=== PATIENT | female | born 1980 | race Caucasian/White ===

== ENCOUNTER 2016-08-28 21:44 | Observation (INO) | payer MEDICAID ==
[~2016-08-28] VITALS: Ht 172.7 cm; Wt 112.4 kg
[2016-08-28] MEDS ORDERED: LORazepam 2 MG/ML, 1ML IM ONE (23:30)
[2016-08-28] MEDS ORDERED: ZIPRASIDONE 20 MG INJ IM ONE ×2 (23:30→23:32)
[2016-08-28] MEDS ORDERED: LORazepam 2 MG/ML, 1ML ONE (23:32)
[2016-08-29 00:52] LABS: ASPARTATE AMINO TRANSFERASE 16 U/L (15-37); BLOOD UREA NITROGEN 8 mg/dL (7-18)
[2016-08-29 00:58] LABS: ACETAMINOPHEN < 2 mcg/mL (10-30)
[2016-08-29 03:29] LABS: DAU SCREEN DISCLAIMER
[2016-08-29] MEDS ORDERED: ACETAMINOPHEN 325 MG TABLET ONE (15:49)
[2016-08-29] MEDS ORDERED: ACETAMINOPHEN 325 MG TABLET PO ONE (16:00)
[2016-08-29] MEDS ORDERED: DIPHENHYDRAMINE 50 MG CAPSULE PO PRN (21:30)
[2016-08-29] MEDS ORDERED: NICOTINE 14MG/24 HR PATCH.TD24 TD SCH (21:30)
[2016-08-29] MEDS ORDERED: ZIPRASIDONE 20MG CAPSULE PO PRN (21:30)
[2016-08-29] MEDS ORDERED: POLYETHYLENE GLYCOL 17 GM PACKET PO PRN (21:30)
[2016-08-29] MEDS ORDERED: BISACODYL 10 MG SUPP PR PRN (21:30)
[2016-08-29] MEDS ORDERED: ONDANSETRON ODT 4 MG PO PRN (21:30)
[2016-08-29] MEDS: ACETAMINOPHEN 325 MG TABLET PO PRN (22:42)
[2016-08-29] MEDS: LISINOPRIL 10 MG TABLET PO SCH (22:45)
[2016-08-29 23:21] VITALS: BP 169/101
[2016-08-30] MEDS: METHOCARBAMOL 750 MG TABLET PO PRN ×2 (06:58→12:50)
[2016-08-30 07:45] VITALS: BP 169/104
[2016-08-30] MEDS ORDERED: SENNA/DOCUSATE TABLET PO SCH (09:00)
[2016-08-30] MEDS: LISINOPRIL 10 MG TABLET PO SCH (09:15)
[2016-08-30] MEDS: ACETAMINOPHEN 325 MG TABLET PO PRN (12:50)
== END 2016-08-30 14:08 ==
LOC: ED 23:59 → EDIP 08-29 21:13 → 3E 08-29 22:24
PROVIDERS: ADMIT Family Medicine; ATTEND Family Medicine
DX: R45.851 Suicidal ideations (principal); E44.1 Mild protein-calorie malnutrition; E66.01 Morbid (severe) obesity due to excess calories; F15.10 Other stimulant abuse, uncomplicated; I10 Essential (primary) hypertension; F17.210 Nicotine dependence, cigarettes, uncomplicated
CPT/HCPCS: 36415; 80053; 80307; 80329; 84703; 85025; 96372; 99285; G0378; J2060; G0480

== ENCOUNTER 2017-04-19 23:28 | Emergency (ER) | payer MEDICAID, OTHER ==
[~2017-04-19] VITALS: Ht 172.7 cm; Wt 110.0 kg
[2017-04-20 00:27] LABS: BASOPHILS # (AUTO) 0.09 x10^3/uL (0-0.1); BASOPHILS % (AUTO) 1 % (0-1); EOSINOPHILS # (AUTO) 0.23 x10^3/uL (0-0.4); EOSINOPHILS % (AUTO) 3 % (1-7); LYMPHOCYTES # (AUTO) 1.68 x10^3/uL (1-3.4); LYMPHOCYTES % (AUTO) 20 % (22-44); MD NO; MEAN CORPUSCULAR HGB CONC 33.4 g/dL (32.4-35.8); MEAN CORPUSCULAR VOLUME 92.8 fL (80-100); MEAN PLATELET VOLUME 7.9 fL (7.4-10.4); MONOCYTES # (AUTO) 0.61 x10^3/uL (0.2-0.8); MONOCYTES % (AUTO) 7 % (2-9); NEUTROPHILS # (AUTO) 5.82 x10^3/uL (1.8-6.8); NEUTROPHILS % (AUTO) 69 % (42-75); PLATELET COUNT 280 x10^3/uL (130-400); RED BLOOD COUNT 4.55 x10^6/uL (3.82-5.3); RED CELL DISTRIBUTION WIDTH 16.4 % (9.6-15.2)
[2017-04-20 00:35] LABS: ALBUMIN 3.6 g/dL (3.4-5.0); ANION GAP 6 mmol/L (5-15); CALCIUM 8.5 mg/dL (8.5-10.1); CHLORIDE 109 mmol/L (98-107); CREATININE 0.52 mg/dL (0.55-1.02)
[2017-04-20 00:39] LABS: TROPONIN I < 0.015 ng/mL (0.000-0.045)
[2017-04-20 00:49] VITALS: BP 162/93
== END 2017-04-20 00:59 | disposition home or self-care (01) ==
LOC: ED 23:59
DX: I10 Essential (primary) hypertension (principal); G89.29 Other chronic pain; F17.200 Nicotine dependence, unspecified, uncomplicated; F41.9 Anxiety disorder, unspecified
CPT/HCPCS: 36415; 80048; 82040; 84484; 85025; 93005; 99285

== ENCOUNTER 2017-08-31 09:27 | Emergency (ER) | payer MEDICAID ==
[~2017-08-31] VITALS: Ht 172.7 cm; Wt 124.7 kg
[2017-08-31 09:35] VITALS: BP 158/92
[2017-08-31] MEDS ORDERED: LORazepam 1MG TABLET ONE (10:52)
[2017-08-31] MEDS ORDERED: LORazepam 1MG TABLET PO ONE (11:00)
== END 2017-08-31 11:11 | disposition home or self-care (01) ==
LOC: ED 10:45
DX: F33.2 Major depressive disorder, recurrent severe without psychotic features (principal); F41.0 Panic disorder [episodic paroxysmal anxiety]; I10 Essential (primary) hypertension
CPT/HCPCS: 99284

== ENCOUNTER 2018-08-28 10:04 | Inpatient (IN) | payer MEDICAID ==
[~2018-08-28] VITALS: Ht 172.7 cm; Wt 145.9 kg
--- NOTE | 2018-08-28 11:07 | NUR ---
PT TO ROOM AT THIS TIME
[2018-08-28] MEDS ORDERED: QUET300T7 PO (11:34)
[2018-08-28] MEDS ORDERED: ARIP2TAB2 PO (11:34)
[2018-08-28] MEDS ORDERED: BUPR-173 PO (11:34)
[2018-08-28] MEDS ORDERED: LISI-170 PO (11:34)
--- NOTE | 2018-08-28 11:44 | NUR ---
RECEIVED BEDSIDE REPORT FROM VANDANA YARBROUGH.
--- NOTE | 2018-08-28 11:45 | NUR ---
REPORT TO VANDANA DEAL. PT RESTING IN POSITION OF COMFORT IN [facility]. CONTINUOUS SPO2 MONITORING IN PLACE. AWAITING EVAL BY ED MD.
[2018-08-28] MEDS ORDERED: FLUCONAZOLE 200 MG/100 ML 100 ML IV STA (12:27)
[2018-08-28] MEDS ORDERED: HYDROmorphone 1 MG/ML, 1ML INJ IVPush PRN (12:30)
[2018-08-28] MEDS ORDERED: ONDANSETRON 2MG/ML, 2ML IVPush ONE (12:30)
[2018-08-28] MEDS ORDERED: VANCOMYCIN PER PHARMACY IV ONE (12:30)
[2018-08-28] MEDS ORDERED: LORazepam 1MG TABLET PO ONE (12:30)
[2018-08-28] MEDS ORDERED: SODIUM CHLORIDE FLUSH 10ML SYR IVF ONE (12:30)
[2018-08-28] MEDS ORDERED: LIDOCAINE 2% VISCOUS, 100ML MM ONE (12:38)
--- NOTE | 2018-08-28 12:42 | NUR ---
PIV ESTABLISHED. PT TOLERATED WITH NO COMPLICATIONS. NO ACUTE DISTRESS NOTED. MOTHER BEDSIDE. PT VERBALIZES UNDERSTANDING REGARDING POC.
[2018-08-28] MEDS ORDERED: MIRTAZAPINE (12:44)
[2018-08-28] MEDS ORDERED: FLUCONAZOLE 200 MG TABLET PO ONE (12:54)
[2018-08-28] MEDS ORDERED: FLUCONAZOLE 100 MG TABLET ONE (13:04)
[2018-08-28] MEDS ORDERED: LORazepam 1MG TABLET ONE (13:04)
[2018-08-28] MEDS ORDERED: ONDANSETRON 2MG/ML, 2ML ONE (13:04)
[2018-08-28] MEDS ORDERED: NYSTATIN OINT 15GM TP ONE (13:05)
--- NOTE | 2018-08-28 13:15 | NUR ---
PT RESTING ON GURNEY. NO ACUTE DISTRESS NOTED. MOTHER BEDSIDE. PT DOESN;'T WANT VISITORS, ONLY MOTHER (JOSE BENAVIDES).
--- NOTE | 2018-08-28 13:21 | NUR ---
security aware of PT VEHICLE IN ER PARKING LOT. PER SECURITY, "IT WON'T BE TOWED." PT HAS [address] [employer].
[2018-08-28 13:27] LABS: BASOPHILS # (AUTO) 0.05 x10^3/uL (0-0.1); BASOPHILS % (AUTO) 1 % (0-1); EOSINOPHILS # (AUTO) 0.19 x10^3/uL (0-0.4); EOSINOPHILS % (AUTO) 2 % (1-7); LYMPHOCYTES # (AUTO) 1.98 x10^3/uL (1-3.4); LYMPHOCYTES % (AUTO) 19 % (22-44); MD NO; MEAN CORPUSCULAR HEMOGLOBIN 32.9 pg (27.0-34.8); MEAN CORPUSCULAR HGB CONC 34.4 g/dL (32.4-35.8); MEAN CORPUSCULAR VOLUME 95.8 fL (80-100); MEAN PLATELET VOLUME 8.3 fL (7.4-10.4); MONOCYTES # (AUTO) 0.81 x10^3/uL (0.2-0.8); MONOCYTES % (AUTO) 8 % (2-9); NEUTROPHILS % (AUTO) 71 % (42-75); PLATELET COUNT 346 x10^3/uL (130-400); RED BLOOD COUNT 4.14 x10^6/uL (3.82-5.3)
[2018-08-28 13:36] LABS: ALBUMIN 4.2 g/dL (3.4-5.0); ANION GAP 10 mmol/L (5-15); CALCIUM 9.4 mg/dL (8.5-10.1); CHLORIDE 102 mmol/L (98-107)
[2018-08-28 13:39] LABS: ALANINE AMINOTRANSFERASE 68 U/L (12-78); ALKALINE PHOSPHATASE 59 U/L (45-117); BILIRUBIN,TOTAL 0.6 mg/dL (0.2-1.0); CREATININE 0.99 mg/dL (0.55-1.02)
--- NOTE | 2018-08-28 14:13 | NUR ---
RECEIVED BEDSIDE REPORT FROM VANDANA YARBROUGH.
--- NOTE | 2018-08-28 14:29 | NUR ---
REPORT TO VANDANA JAIN. ALL QUESTIONS ANSWERED
[2018-08-28] MEDS ORDERED: HYDROmorphone 1 MG/ML, 1ML VIAL ONE (14:31)
[2018-08-28] MEDS: CEFAZOLIN 2,000 MG in SODIUM CHLORIDE 0.9% 50 ML IV SCH ×2 (14:44→21:09)
--- NOTE | 2018-08-28 15:00 | NUR ---
PT TRANSFERRED TO FLOOR. PT LEFT WITH ALL PERSONAL BELONGINGS, INCLUDING PHONE AND PHONE LEGAL NURSE CONSULTANT
[2018-08-28] MEDS ORDERED: ONDANSETRON ODT 4 MG PO PRN (15:30)
[2018-08-28] MEDS ORDERED: ONDANSETRON 2MG/ML, 2ML IVPush PRN (15:30)
[2018-08-28] MEDS ORDERED: KETOROLAC 30 MG/1 ML IV PRN (15:30)
[2018-08-28] MEDS: ENOXAPARIN 40 MG/0.4 ML SQ SCH (15:30)
[2018-08-28] MEDS ORDERED: ACETAMINOPHEN 325 MG TABLET PO PRN (15:30)
[2018-08-28 18:29] VITALS: BP 122/77
[2018-08-28] MEDS: POTASSIUM CHLORIDE 20 MEQ TAB.ER.PRT PO SCH (18:48)
[2018-08-28] MEDS: NYSTATIN TOPICAL POWDER 15GM TP SCH (19:00)
[2018-08-28 19:05] VITALS: BP 91/63
[2018-08-28] MEDS: HYDROcodone/APAP 5/325 TABLET PO PRN (19:58)
[2018-08-28 21:11] LABS: MICROSCOPIC INDICATED
[2018-08-28 21:28] LABS: CULTURE INDICATED? YES
[2018-08-29] MEDS: NYSTATIN TOPICAL POWDER 15GM TP SCH ×4 (01:00→21:54)
[2018-08-29 01:26] VITALS: BP 112/72
[2018-08-29] MEDS: HYDROcodone/APAP 5/325 TABLET PO PRN ×5 (05:17→21:54)
[2018-08-29] MEDS: CEFAZOLIN 2,000 MG in SODIUM CHLORIDE 0.9% 50 ML IV SCH ×2 (05:17→13:38)
[2018-08-29 05:18] LABS: BASOPHILS # (AUTO) 0.11 x10^3/uL (0-0.1); BASOPHILS % (AUTO) 2 % (0-1); EOSINOPHILS # (AUTO) 0.26 x10^3/uL (0-0.4); EOSINOPHILS % (AUTO) 4 % (1-7); LYMPHOCYTES # (AUTO) 2.11 x10^3/uL (1-3.4); LYMPHOCYTES % (AUTO) 33 % (22-44); MD NO; MEAN CORPUSCULAR HEMOGLOBIN 33.1 pg (27.0-34.8); MEAN CORPUSCULAR HGB CONC 34.3 g/dL (32.4-35.8); MEAN CORPUSCULAR VOLUME 96.7 fL (80-100); MEAN PLATELET VOLUME 7.9 fL (7.4-10.4); MONOCYTES # (AUTO) 0.77 x10^3/uL (0.2-0.8); MONOCYTES % (AUTO) 12 % (2-9); NEUTROPHILS # (AUTO) 3.11 x10^3/uL (1.8-6.8); NEUTROPHILS % (AUTO) 49 % (42-75); PLATELET COUNT 284 x10^3/uL (130-400); RED BLOOD COUNT 3.79 x10^6/uL (3.82-5.3)
[2018-08-29 05:24] LABS: CHLORIDE 102 mmol/L (98-107)
[2018-08-29 05:41] LABS: ALANINE AMINOTRANSFERASE 52 U/L (12-78); ALBUMIN 3.4 g/dL (3.4-5.0); ALKALINE PHOSPHATASE 54 U/L (45-117); ANION GAP 7 mmol/L (5-15); BILIRUBIN,TOTAL 0.3 mg/dL (0.2-1.0); CALCIUM 8.7 mg/dL (8.5-10.1); CREATININE 1.28 mg/dL (0.55-1.02); TOTAL PROTEIN 6.8 g/dL (6.4-8.2)
[2018-08-29 07:00] VITALS: BP 97/66
[2018-08-29] MEDS: POTASSIUM CHLORIDE 20 MEQ TAB.ER.PRT PO SCH (09:31)
[2018-08-29 12:23] VITALS: BP 97/64
[2018-08-29] MEDS ORDERED: POTASSIUM CHLORIDE 20 MEQ TAB.ER.PRT PO ONE (13:00)
[2018-08-29] MEDS: LIDODERM 5% PATCH TD SCH ×2 (13:41→13:50)
[2018-08-29] MEDS: ENOXAPARIN 40 MG/0.4 ML SQ SCH (15:30)
[2018-08-29 18:35] VITALS: BP 102/66
[2018-08-29] MEDS: QUETIAPINE FUMARATE 300 MG PO SCH (21:00)
[2018-08-29] MEDS: MIRTAZAPINE 15 MG TABLET PO SCH (21:54)
[2018-08-30 00:48] VITALS: BP 100/64
[2018-08-30] MEDS: HYDROcodone/APAP 5/325 TABLET PO PRN ×4 (04:29→21:19)
[2018-08-30] MEDS: CEFAZOLIN PMX 2GM/50ML 50 ML IVPB SCH ×3 (04:29→21:12)
[2018-08-30 07:16] VITALS: BP 98/65
[2018-08-30] MEDS: ARIPIPRAZOLE 5 MG TABLET PO SCH (08:52)
[2018-08-30] MEDS: POTASSIUM CHLORIDE 20 MEQ TAB.ER.PRT PO SCH (08:53)
[2018-08-30] MEDS: BUPROPION SR 150 MG TABLET PO SCH (08:53)
[2018-08-30] MEDS: NYSTATIN TOPICAL POWDER 15GM TP SCH ×3 (08:54→21:17)
[2018-08-30 13:05] VITALS: BP 108/73
[2018-08-30] MEDS ORDERED: ENOXAPARIN 30 MG/0.3 ML SQ SCH (13:30)
[2018-08-30] MEDS ORDERED: SODIUM CHLORIDE 0.9% 1,000ML IVBOLUS ONE (15:00)
[2018-08-30] MEDS: LIDOCAINE 4% CREAM 5GM TUBE TP SCH ×2 (16:51→21:00)
[2018-08-30 19:50] VITALS: BP 100/69
[2018-08-30] MEDS: QUETIAPINE FUMARATE 300 MG PO SCH (21:00)
[2018-08-30] MEDS: MIRTAZAPINE 15 MG TABLET PO SCH (21:17)
[2018-08-31 03:02] VITALS: BP 137/74
[2018-08-31] MEDS: HYDROcodone/APAP 5/325 TABLET PO PRN ×2 (04:54→11:59)
[2018-08-31] MEDS: CEFAZOLIN PMX 2GM/50ML 50 ML IVPB SCH ×2 (05:44→13:30)
[2018-08-31 05:48] LABS: ANION GAP 5 mmol/L (5-15); CALCIUM 8.7 mg/dL (8.5-10.1); CHLORIDE 107 mmol/L (98-107); CREATININE 0.86 mg/dL (0.55-1.02)
[2018-08-31] MEDS: ARIPIPRAZOLE 5 MG TABLET PO SCH (09:38)
[2018-08-31] MEDS: BUPROPION SR 150 MG TABLET PO SCH (09:40)
[2018-08-31] MEDS: POTASSIUM CHLORIDE 20 MEQ TAB.ER.PRT PO SCH (09:40)
[2018-08-31] MEDS: LIDOCAINE 4% CREAM 5GM TUBE TP SCH (09:40)
[2018-08-31] MEDS ORDERED: CEPH-368 PO (09:48)
[2018-08-31] MEDS ORDERED: LIDO5CRE19 TP (09:48)
[2018-08-31] MEDS ORDERED: NYST15CR33 TP (09:48)
[2018-08-31] MEDS: NYSTATIN TOPICAL POWDER 15GM TP SCH (09:50)
[2018-08-31 09:54] VITALS: BP 125/78
[2018-08-31 12:04] VITALS: BP 124/86
== END 2018-08-31 15:06 | disposition home or self-care (01) | DRG 603 ==
LOC: ED 12:32 → EDIP 13:54 → 3NE 15:11
PROVIDERS: ADMIT Internal Medicine; ATTEND Internal Medicine
DX: L03.115 Cellulitis of right lower limb (principal); L97.119 Non-pressure chronic ulcer of right thigh with unspecified severity; Z68.42 Body mass index [BMI] 45.0-49.9, adult; L97.129 Non-pressure chronic ulcer of left thigh with unspecified severity; E66.01 Morbid (severe) obesity due to excess calories; B37.2 Candidiasis of skin and nail; D72.810 Lymphocytopenia; E87.6 Hypokalemia; L03.116 Cellulitis of left lower limb; F17.210 Nicotine dependence, cigarettes, uncomplicated; F31.9 Bipolar disorder, unspecified; F41.0 Panic disorder [episodic paroxysmal anxiety]; F41.1 Generalized anxiety disorder; I10 Essential (primary) hypertension; L30.4 Erythema intertrigo; L74.0 Miliaria rubra
CPT/HCPCS: 36415; 80048; 80053; 81001; 83605; 83735; 84443; 84703; 85025; 86592; 87040; 87077; 87086; 87186; 87491; 87529; 87591; 87806; 96374; 96375; G0378; J0690; J1170; J2405; G0475; J7030

== ENCOUNTER 2019-09-27 16:10 | Emergency (ER) | payer MEDICAID ==
[~2019-09-27] VITALS: Ht 172.7 cm; Wt 124.1 kg
[2019-09-27 15:07] VITALS: BP 90/61
[~2019-09-27 16:10] MED LIST: ARIP2TAB2 PO; BUPR-173 PO; CEPH-368 PO; KETOROLAC 30 MG/1 ML IM ONE; KETOROLAC 60 MG/2 ML ONE; LIDO5CRE26 TP; LISI-170 PO; METHOCARBAMOL 750 MG TABLET ONE; METHOCARBAMOL 750 MG TABLET PO ONE; MIRTAZAPINE; NYST15CR TP; ONDANSETRON ODT 4 MG ONE; ONDANSETRON ODT 4 MG PO ONE; QUET300T7 PO
--- NOTE | 2019-09-27 16:16 | NUR ---
PT MEDICATED PER MAR. DENIES ANY FURTHER NEEDS OR CONCERNS AT THIS TIME. CALL LIGHT IN REACH.
== END 2019-09-27 16:49 | disposition home or self-care (01) ==
LOC: ED 16:10
DX: M54.41 Lumbago with sciatica, right side (principal); I10 Essential (primary) hypertension; E66.9 Obesity, unspecified
CPT/HCPCS: 96372; 99283; J1885; Q0162

== ENCOUNTER 2019-11-20 16:02 | Inpatient (IN) | payer MEDICAID ==
[~2019-11-20] VITALS: Ht 172.7 cm; Wt 124.6 kg
[~2019-11-20 16:02] MED LIST changes: -KETOROLAC 30 MG/1 ML IM ONE; -KETOROLAC 60 MG/2 ML ONE; -METHOCARBAMOL 750 MG TABLET ONE; -METHOCARBAMOL 750 MG TABLET PO ONE; -ONDANSETRON ODT 4 MG ONE; -ONDANSETRON ODT 4 MG PO ONE
--- NOTE | 2019-11-20 16:31 | NUR ---
PT BIB [facility] FOR SYNCOPAL EPISDOE AFTER STANDING. PT HAS NOT BEEN EATING PER MOTHER AT SCENE. +NAUSEA. PT HAD PROCEDURE 2 WEEKS AGO ON RIGHT HIP FOR PAIN THAT INVOLVED INJECTION AT HIP. PT REPORTS POSITIVE GRACE SYMPTOMS INCLUDING NASAL CONGESTION, FEVER, BODY ACHES, AND NAUSEA. PT REPORTS WHEN SHE PASSED OUT SHE STARTED TO HAVE LOW BACK PAIN AFTER INCIDENT. PT ON MONITOR. CHART UP FOR .
--- NOTE | 2019-11-20 16:49 | NUR ---
REST OF LITER OF NS INITIATED BY [facility] INFUSED AND SECOND LITER STARTED HERE PER DR. PAIZ. PT BP 90/43 WITH MAP LESS THAN 65.
[2019-11-20] MEDS ORDERED: SODIUM CHLORIDE 0.9% 1,000ML IVBOLUS ONE (17:00)
[2019-11-20 17:18] LABS: BASOPHILS # (AUTO) 0.04 x10^3/uL (0-0.1); BASOPHILS % (AUTO) 0 % (0-1); EOSINOPHILS # (AUTO) 0.13 x10^3/uL (0-0.4); EOSINOPHILS % (AUTO) 1 % (1-7); LYMPHOCYTES # (AUTO) 2.39 x10^3/uL (1-3.4); LYMPHOCYTES % (AUTO) 27 % (22-44); MD NO; MEAN CORPUSCULAR HEMOGLOBIN 30.3 pg (27.0-34.8); MEAN CORPUSCULAR HGB CONC 33.1 g/dL (32.4-35.8); MEAN CORPUSCULAR VOLUME 91.4 fL (80-100); MEAN PLATELET VOLUME 7.7 fL (7.4-10.4); MONOCYTES # (AUTO) 0.73 x10^3/uL (0.2-0.8); MONOCYTES % (AUTO) 8 % (2-9); NEUTROPHILS # (AUTO) 5.69 x10^3/uL (1.8-6.8); NEUTROPHILS % (AUTO) 63 % (42-75); PLATELET COUNT 219 x10^3/uL (130-400); RED BLOOD COUNT 3.21 x10^6/uL (3.82-5.3); RED CELL DISTRIBUTION WIDTH 12.4 % (9.6-15.2)
[2019-11-20 17:27] LABS: ALANINE AMINOTRANSFERASE 14 U/L (12-78); ALBUMIN 3.5 g/dL (3.4-5.0); ANION GAP 10 mmol/L (5-15); CALCIUM 8.4 mg/dL (8.5-10.1); CHLORIDE 108 mmol/L (98-107); CREATININE 4.19 mg/dL (0.55-1.02)
[2019-11-20 17:31] LABS: ALKALINE PHOSPHATASE 38 U/L (45-117); BILIRUBIN,TOTAL 0.4 mg/dL (0.2-1.0); TOTAL PROTEIN 6.2 g/dL (6.4-8.2)
--- NOTE | 2019-11-20 17:50 | NUR ---
DR PAIZ AT BEDSIDE. AWARE OF PT BP. CENTRAL LINE TO BE PLACED. PT WOULD LIKE HER MOM JOSE [phone] CALLED AND UPDATED ON PT CONDITION. PT AWARE OF MINI CATH FOR URINE. Addendum: 11/20/19 at 1753 by LYN 3rd liter ns infusing per v/o from dr paiz
--- NOTE | 2019-11-20 18:05 | NUR ---
PT MINI CATH'D FOR URINE SPECIMAN AFTER EXPLAINING PROCEDURE TO PT. PT BELLA WELL. PT MOVED TO TR03, REPORT TO SORAYA ROSS.
--- NOTE | 2019-11-20 18:13 | NUR ---
Pt to T3 at this time for central line insertion. Dr. Byers at bedside to insert central line. Pt anxious, verbal reassurance and education provided. Pt agreeable to POC.
[2019-11-20 18:16] LABS: MICROSCOPIC INDICATED
--- NOTE | 2019-11-20 18:17 | NUR ---
PLACED CALL TO PTS MOTHER JOSE [phone]. SHE EXPRESSED CONCERNS THE PT "HASNT BEEN HERSELF FOR A COUPLE OF WEEKS. NORMALLY VERY SHARP. SHE SEEMS TO FADE OUT. PROBLEMS WITH COMPREHENSION AND RETENTION. TELL HER SOMETHING AND SHE FORGETS. HAS A HX OF BIPOLAR AND HIGH ANXIETY. I FEEL THAT THERE IS SOMETHING PHYSICALLY WRONG WITH HER. SHE HASNT BEEN EATING OR DRINKING AND IT HAS BEEN SO HOT" "IF ANYONE HAS ANY QUESTIONS, PLEASE CALL ME. SHE LIVES WITH ME" JOSE UPDATED ON POC, IE: CENTAL LINE TO BE PLACED FLUIDS AND MEDS TO SUPPORT LOW BP. PT CURRENTLY IN RENAL FAILURE. PT WILL BE STAYING IN THE HOSPITAL. UNDERSTANDING VERBALIZED.
[2019-11-20 18:19] LABS: HCT (SEDRATE) 29.4 % (34.6-47.8)
[2019-11-20] MEDS ORDERED: FLUO40CA9 PO (18:29)
[2019-11-20] MEDS ORDERED: ALPR1TAB2 PO (18:29)
--- NOTE | 2019-11-20 18:30 | NUR ---
Pt tolerated central line insertion well, VSS throughout. Awaiting chest xray for placement confirmation.
--- NOTE | 2019-11-20 18:35 | NUR ---
Chest xray completed by [employer]. Central line ok for use per Dr. Byers.
[2019-11-20] MEDS ORDERED: MORPHINE SULFATE 4 MG/ML, 1ML ONE (18:37)
[2019-11-20] MEDS: MORPHINE SULFATE 4 MG/ML, 1ML IVPush PRN (18:38)
--- NOTE | 2019-11-20 18:42 | NUR ---
Pt medicated for 10/10 low back and R hip pain per JUN. US tech at bedside to perform ordered studies.
--- NOTE | 2019-11-20 18:55 | NUR ---
assumed care of pt. report from Jose Luis ROSS. pt here for syncopal episode and chronic back pain. pt is A&O x4. calm and cooperative resting in position of comfort. pt has recently been medicated for pain. no family at bedside. awaiting admit MD for eval
[2019-11-20] MEDS ORDERED: NOREPINEPHRINE 8 MG in SODIUM CHLORIDE 0.9% 242 ML IV PRN ×2 (19:00→21:30)
--- NOTE | 2019-11-20 19:10 | NUR ---
bedside US has been completed. pt to RAD for x-ray
--- NOTE | 2019-11-20 19:40 | NUR ---
pt has returned from RAD. pt reports that she has had some mild relief afte pain meds. pt reports that her pain is currently 8/10 from 01/29. pt states that her chronic back pain is consitantly at 10/10. pt is sitting up texting on he cell phone. calm and cooperative. pink warm and dry. no apparent resp distress. no seizure type activity noted. pt updated on POC
--- NOTE | 2019-11-20 20:08 | NUR ---
levophed has been held as pt B/P is consistantly ove 60 for the last hour
--- NOTE | 2019-11-20 21:00 | NUR ---
pt dozing intermittently. resting in position of comfort
--- NOTE | 2019-11-20 21:45 | NUR ---
upon entering room, pt dozing intermittently. no apparent resp. distress. no new c/o pt moved from [facility] to hospital bed with waffle mattress overlay for comfort. pt reports increased comfort after positioned
[2019-11-20] MEDS ORDERED: HYDROmorphone 2 MG/ML, 1ML IVPush PRN (22:00)
[2019-11-20] MEDS ORDERED: TRAZODONE 50MG TABLET PO PRN (22:00)
[2019-11-20] MEDS ORDERED: ACETAMINOPHEN 325 MG TABLET PO PRN (22:00)
[2019-11-20] MEDS ORDERED: LIDODERM 5% PATCH TD PRN (22:00)
[2019-11-20 22:59] LABS: TROPONIN I < 0.015 ng/mL (0.000-0.045)
[2019-11-20] MEDS ORDERED: ALPRazolam 1MG TAB PO PRN (23:00)
--- NOTE | 2019-11-21 | NUR ---
pt dozing. easily arousable. positioning for comfort levophed ordered from pharmacy
--- NOTE | 2019-11-21 00:36 | NUR ---
repeat EKG at bedside for worsening bradycardia
[2019-11-21] MEDS: LACTATED RINGERS 1,000 ML IV SCH ×4 (00:41→18:03)
[2019-11-21] MEDS ORDERED: CEFTRIAXONE PMX 1GM/50ML 50 ML ONE (00:44)
[2019-11-21] MEDS: CEFTRIAXONE PMX 1GM/50ML 50 ML IV SCH ×2 (00:48→21:40)
[2019-11-21] MEDS ORDERED: MORPHINE SULFATE 4 MG/ML, 1ML ONE ×2 (01:05→08:11)
[2019-11-21] MEDS ORDERED: HYDROcodone/APAP 5/325 TABLET ONE ×3 (01:06→09:06)
[2019-11-21] MEDS: MORPHINE SULFATE 4 MG/ML, 1ML IVPush PRN ×4 (01:10→19:46)
[2019-11-21] MEDS: HYDROcodone/APAP 5/325 TABLET PO PRN ×5 (01:11→16:51)
--- NOTE | 2019-11-21 01:15 | NUR ---
pt assisted to bedpan. well tolerated. pt given fresh linen and gown positioning for comfort
--- NOTE | 2019-11-21 01:47 | NUR ---
pt has no c/o at this time. denies pain. positioning for comfort PO sprite given per request lights dimmed
--- NOTE | 2019-11-21 01:54 | NUR ---
report to Fatimah ROSS for [facility]
--- NOTE | 2019-11-21 01:55 | NUR ---
Rocephin infusion completed
--- NOTE | 2019-11-21 02:35 | NUR ---
pt assisted to bedpan. well tolerated. positioning for comfort
--- NOTE | 2019-11-21 03:20 | NUR ---
pt sleeping in position of comfort. no apparent distress. hold for CCU bed. no family at bedside. will continue to monitor
--- NOTE | 2019-11-21 04:30 | NUR ---
no changes. pt sleeping. pt is able to move herself in bed to position of comfort
[2019-11-21 04:44] LABS: ANION GAP 11 mmol/L (5-15); CALCIUM 8.4 mg/dL (8.5-10.1); CHLORIDE 110 mmol/L (98-107)
[2019-11-21 04:56] LABS: MEAN CORPUSCULAR HEMOGLOBIN 29.2 pg (27.0-34.8); MEAN CORPUSCULAR HGB CONC 31.5 g/dL (32.4-35.8); MEAN CORPUSCULAR VOLUME 92.5 fL (80-100); MEAN PLATELET VOLUME 7.7 fL (7.4-10.4); PLATELET COUNT 302 x10^3/uL (130-400); RED BLOOD COUNT 3.84 x10^6/uL (3.82-5.3); RED CELL DISTRIBUTION WIDTH 12.8 % (9.6-15.2)
[2019-11-21 05:23] LABS: BASOPHILS # (AUTO) 0.05 x10^3/uL (0-0.1); BASOPHILS % (AUTO) 0 % (0-1); EOSINOPHILS % (AUTO) 1 % (1-7); LYMPHOCYTES # (AUTO) 3.12 x10^3/uL (1-3.4); LYMPHOCYTES % (AUTO) 18 % (22-44); MD SCAN; MONOCYTES # (AUTO) 1.19 x10^3/uL (0.2-0.8); MONOCYTES % (AUTO) 7 % (2-9); NEUTROPHILS # (AUTO) 12.36 x10^3/uL (1.8-6.8); NEUTROPHILS % (AUTO) 73 % (42-75)
[2019-11-21] MEDS: HEPARIN 5,000 UNITS/ML, 1ML SQ SCH ×4 (06:00→21:45)
--- NOTE | 2019-11-21 06:00 | NUR ---
pt has been medicated for pain per request. positioning for comfort. updated on POC. will continue to monitor
[2019-11-21] MEDS ORDERED: LIDODERM 5% PATCH TD ONE (06:02)
[2019-11-21] MEDS ORDERED: HEPARIN 5,000 UNITS/ML, 1ML ONE ×2 (06:03→08:11)
[2019-11-21] MEDS ORDERED: ICN COSYNTROPIN 250 MCG in SYRINGE 1 EA IV ONE (06:30)
--- NOTE | 2019-11-21 06:53 | NUR ---
TOOK REPORT FROM ROD MACK, ASSUME CARE AT THIS TIME.
--- NOTE | 2019-11-21 06:55 | NUR ---
bedside report to Mary ROSS and Juan Luis ROSS pt updated on POC
[2019-11-21] MEDS ORDERED: COSYNTROPIN 0.25 MG IVPush ONE (08:00)
--- NOTE | 2019-11-21 08:02 | NUR ---
CALLED MD SWETA MARY TO SEE IF WE COULD STOP PT'S LEVO TOO SEE IF SHE COUT GO TO MRI. SWETA MARY SAID TO TAKE HER OFF THE LEVO AND WATCH HER BP.
--- NOTE | 2019-11-21 08:25 | NUR ---
Levo started back up after bp 84/42
[2019-11-21] MEDS: SENNA/DOCUSATE TABLET PO SCH (09:00)
--- NOTE | 2019-11-21 09:25 | NUR ---
LAB IN ROOM, PT AGREES WITH PAIN POC.
[2019-11-21] MEDS: FLUOXETINE HCL 20 MG CAPSULE PO SCH (10:55)
[2019-11-21] MEDS: GABAPENTIN 100 MG CAPSULE PO PRN (12:37)
[2019-11-21 16:13] LABS: AMPHETAMINE SCREEN, URINE Negative (Negative); BARBITURATE SCREEN, URINE Negative (Negative); BENZODIAZEPINE SCREEN, URINE Positive (Negative); CANNABINOID SCREEN, URINE Positive (Negative); COCAINE SCREEN, URINE Negative (Negative); METHADONE SCREEN, URINE Negative (Negative); OPIATE SCREEN, URINE Positive (Negative)
[2019-11-21] MEDS: ALPRazolam 1MG TAB PO PRN (16:52)
[2019-11-21 17:23] LABS: CHLORIDE,URINE RANDOM 25 mmol/L; POTASSIUM,URINE RANDOM 20 mmol/L; SODIUM,URINE RANDOM 34 mmol/L
[2019-11-21] MEDS: ONDANSETRON 2MG/ML, 2ML IVPush PRN (17:25)
[2019-11-21] MEDS: METHOCARBAMOL 750 MG TABLET PO PRN (17:59)
[2019-11-21] MEDS: QUETIAPINE FUMARATE 300 MG HOMEMEDPO SCH (20:42)
[2019-11-22] MEDS: LACTATED RINGERS 1,000 ML IV SCH (02:57)
[2019-11-22] MEDS: METHOCARBAMOL 750 MG TABLET PO PRN ×2 (03:12→17:53)
[2019-11-22 03:50] LABS: BASOPHILS % (AUTO) 1 % (0-1); EOSINOPHILS # (AUTO) 0.33 x10^3/uL (0-0.4); EOSINOPHILS % (AUTO) 5 % (1-7); LYMPHOCYTES % (AUTO) 31 % (22-44); MD NO; MEAN CORPUSCULAR HEMOGLOBIN 30.1 pg (27.0-34.8); MEAN CORPUSCULAR HGB CONC 32.9 g/dL (32.4-35.8); MEAN CORPUSCULAR VOLUME 91.4 fL (80-100); MEAN PLATELET VOLUME 7.5 fL (7.4-10.4); MONOCYTES # (AUTO) 0.55 x10^3/uL (0.2-0.8); MONOCYTES % (AUTO) 8 % (2-9); NEUTROPHILS # (AUTO) 4.05 x10^3/uL (1.8-6.8); NEUTROPHILS % (AUTO) 55 % (42-75); PLATELET COUNT 237 x10^3/uL (130-400); RED BLOOD COUNT 3.41 x10^6/uL (3.82-5.3); RED CELL DISTRIBUTION WIDTH 12.7 % (9.6-15.2)
[2019-11-22 03:52] LABS: ANION GAP 8 mmol/L (5-15); CALCIUM 8.2 mg/dL (8.5-10.1); CHLORIDE 111 mmol/L (98-107); CREATININE 1.28 mg/dL (0.55-1.02)
[2019-11-22 04:00] VITALS: BP 98/52
[2019-11-22] MEDS: HEPARIN 5,000 UNITS/ML, 1ML SQ SCH ×3 (05:56→20:38)
[2019-11-22] MEDS: MORPHINE SULFATE 4 MG/ML, 1ML IVPush PRN ×2 (06:02→11:56)
[2019-11-22] MEDS: SENNA/DOCUSATE TABLET PO SCH (08:37)
[2019-11-22] MEDS: FLUOXETINE HCL 20 MG CAPSULE PO SCH (08:37)
[2019-11-22] MEDS: HYDROcodone/APAP 5/325 TABLET PO PRN ×3 (08:38→20:39)
[2019-11-22] MEDS: ALPRazolam 1MG TAB PO PRN (10:47)
[2019-11-22] MEDS: NICOTINE 7 MG/24 HR PATCH.TD24 TD SCH (10:49)
[2019-11-22] MEDS ORDERED: HYDROmorphone 2 MG/ML, 1ML IVPush PRN (13:00)
[2019-11-22 14:11] VITALS: BP 114/71
[2019-11-22] MEDS: GABAPENTIN 100 MG CAPSULE PO PRN (17:53)
[2019-11-22 20:28] VITALS: BP 122/72
[2019-11-22] MEDS: QUETIAPINE FUMARATE 300 MG HOMEMEDPO SCH (20:39)
[2019-11-23] VITALS (7 sets, daily range): BP systolic 100–130; BP diastolic 59–96
[2019-11-23 06:07] LABS: ANION GAP 5 mmol/L (5-15); CALCIUM 8.9 mg/dL (8.5-10.1); CHLORIDE 110 mmol/L (98-107); CREATININE 1.22 mg/dL (0.55-1.02)
[2019-11-23] MEDS: HYDROcodone/APAP 5/325 TABLET PO PRN ×4 (07:07→21:07)
[2019-11-23] MEDS: ALPRazolam 1MG TAB PO PRN ×3 (07:20→21:07)
[2019-11-23] MEDS: FLUOXETINE HCL 20 MG CAPSULE PO SCH (07:20)
[2019-11-23] MEDS: HEPARIN 5,000 UNITS/ML, 1ML SQ SCH ×3 (07:24→23:27)
[2019-11-23] MEDS: SENNA/DOCUSATE TABLET PO SCH (07:24)
[2019-11-23] MEDS: METHOCARBAMOL 750 MG TABLET PO PRN (08:56)
[2019-11-23] MEDS: GABAPENTIN 100 MG CAPSULE PO PRN (10:00)
[2019-11-23] MEDS: NICOTINE 7 MG/24 HR PATCH.TD24 TD SCH (11:09)
[2019-11-23] MEDS: QUETIAPINE FUMARATE 300 MG HOMEMEDPO SCH (21:07)
[2019-11-24 01:52] VITALS: BP 100/57
[2019-11-24] MEDS: ONDANSETRON 2MG/ML, 2ML IVPush PRN (04:52)
[2019-11-24 05:24] LABS: MEAN CORPUSCULAR HEMOGLOBIN 30.1 pg (27.0-34.8); MEAN CORPUSCULAR HGB CONC 32.9 g/dL (32.4-35.8); MEAN CORPUSCULAR VOLUME 91.5 fL (80-100); MEAN PLATELET VOLUME 7.7 fL (7.4-10.4); PLATELET COUNT 227 x10^3/uL (130-400); RED BLOOD COUNT 3.42 x10^6/uL (3.82-5.3); RED CELL DISTRIBUTION WIDTH 13.2 % (9.6-15.2)
[2019-11-24 05:38] LABS: ALBUMIN 3.3 g/dL (3.4-5.0); ANION GAP 6 mmol/L (5-15); CALCIUM 8.8 mg/dL (8.5-10.1); CHLORIDE 109 mmol/L (98-107)
[2019-11-24 05:44] LABS: ALANINE AMINOTRANSFERASE 22 U/L (12-78); ALKALINE PHOSPHATASE 37 U/L (45-117); BILIRUBIN,TOTAL 0.4 mg/dL (0.2-1.0); C-REACTIVE PROTEIN, QUANT 0.77 mg/dL (0.02-0.49); TOTAL PROTEIN 6.2 g/dL (6.4-8.2)
[2019-11-24] MEDS: HYDROcodone/APAP 5/325 TABLET PO PRN ×3 (05:47→14:43)
[2019-11-24] MEDS: ALPRazolam 1MG TAB PO PRN ×2 (05:47→12:57)
[2019-11-24 05:49] LABS: HCT (SEDRATE) 31.3 % (34.6-47.8)
[2019-11-24 06:05] LABS: MD YES
[2019-11-24 06:09] LABS: <RBC MORPHOLOGY> NORMAL; BASOS#(MANUAL) 0.11 x10^3/uL (0-0.1); BASOS% (MANUAL) 2 % (0-1); EOS#(MANUAL) 0.32 x10^3/uL (0.0-0.4); EOS% (MANUAL) 6 % (1-7); LYMPHS% (MANUAL) 49 % (22-44); MONOS#(MANUAL) 0.05 x10^3/uL (0.3-2.7); MONOS% (MANUAL) 1 % (2-9); REACTIVE LYMPHS # (MANUAL) 0.11 x10^3/uL (0-0); REACTIVE LYMPHS % (MANUAL) 2 % (0-0); SEG#(MANUAL) 2.12 x10^3/uL (1.8-6.8); SEGS% (MANUAL) 40 % (42-75)
[2019-11-24 06:10] LABS: <PLATELET ESTIMATE> ADEQUATE; <PLT MORPHOLOGY> NORMAL PLT MORPH
[2019-11-24 08:17] VITALS: BP 112/76
[2019-11-24] MEDS: FLUOXETINE HCL 20 MG CAPSULE PO SCH (09:36)
[2019-11-24] MEDS: SENNA/DOCUSATE TABLET PO SCH (09:36)
[2019-11-24] MEDS: HEPARIN 5,000 UNITS/ML, 1ML SQ SCH ×2 (09:36→16:43)
[2019-11-24] MEDS: NICOTINE 7 MG/24 HR PATCH.TD24 TD SCH (10:53)
[2019-11-24] MEDS: METHOCARBAMOL 750 MG TABLET PO PRN (12:57)
[2019-11-24 13:15] VITALS: BP 103/67
[2019-11-24 13:22] LABS: ANA SCREEN POSITIVE (Negative)
[2019-11-24 13:23] LABS: ANTI-NUCLEAR ANTIBODY PATTERN HOMOGENOUS
== END 2019-11-24 18:01 | disposition home or self-care (01) | DRG 871 ==
LOC: ED 18:38 → EDIP 18:50 → CCU 11-21 10:09 → 4EST 11-22 14:27
PROVIDERS: ADMIT Hospitalist; ATTEND Internal Medicine
PROC: 02HV33Z Insertion of Infusion Device into Superior Vena Cava, Percutaneous Approach (ICD-10-PCS; principal; 2019-11-20)
PROC: B548ZZA Ultrasonography of Superior Vena Cava, Guidance (ICD-10-PCS; 2019-11-20)
DX: A41.9 Sepsis, unspecified organism (principal); N17.0 Acute kidney failure with tubular necrosis; I31.3 Pericardial effusion (noninflammatory); N39.0 Urinary tract infection, site not specified; Z68.41 Body mass index [BMI] 40.0-44.9, adult; D64.9 Anemia, unspecified; E66.9 Obesity, unspecified; E86.0 Dehydration; F12.90 Cannabis use, unspecified, uncomplicated; F17.200 Nicotine dependence, unspecified, uncomplicated; F31.9 Bipolar disorder, unspecified; F41.9 Anxiety disorder, unspecified; G89.29 Other chronic pain; I10 Essential (primary) hypertension; I95.1 Orthostatic hypotension; M19.90 Unspecified osteoarthritis, unspecified site; M51.36 Other intervertebral disc degeneration, lumbar region; Z79.891 Long term (current) use of opiate analgesic
CPT/HCPCS: 36415; 70551; 71045; 72110; 72146; 76770; 80048; 80053; 80307; 81001; 82436; 82533; 82550; 82570; 82728; 83540; 83550; 83605; 83880; 84133; 84145; 84300; 84443; 84466; 84484; 84703; 85025; 85651; 86038; 86039; 86140; 87040; 87081; 87086; 93005; 93306; 95819; G0378; J0696; J1644; J2405; J0834; J2270; J7030; J7050; J7120

== ENCOUNTER 2019-11-26 16:48 | Inpatient (IN) | payer MEDICAID ==
[~2019-11-26] VITALS: Ht 172.7 cm; Wt 125.9 kg
[~2019-11-26 16:48] MED LIST changes: +ALPR1TAB2 PO; +FLUO40CA9 PO
--- NOTE | 2019-11-26 17:31 | NUR ---
PT PLACED ON NIBP AND O2 MONITORING. IV ACCESS OBTAINED, UNABLE TO DRAW LABS FROM IV START. PT REQUESTING PAIN MEDICATIONS. PT EDUCATED THAT MD ORDERS NEED TO BE PLACED BEFORE MEDS ARE PRESCRIBED. WARM BLANKET PROVIDED.
[2019-11-26] MEDS ORDERED: HYDROmorphone 1 MG/ML, 1ML INJ ONE (17:51)
[2019-11-26] MEDS ORDERED: ONDANSETRON 2MG/ML, 2ML ONE (17:52)
[2019-11-26 17:56] LABS: MEAN CORPUSCULAR HEMOGLOBIN 30.3 pg (27.0-34.8); MEAN CORPUSCULAR HGB CONC 32.8 g/dL (32.4-35.8); MEAN CORPUSCULAR VOLUME 92.2 fL (80-100); MEAN PLATELET VOLUME 7.4 fL (7.4-10.4); PLATELET COUNT 270 x10^3/uL (130-400); RED BLOOD COUNT 3.44 x10^6/uL (3.82-5.3); RED CELL DISTRIBUTION WIDTH 13.4 % (9.6-15.2)
[2019-11-26] MEDS: HYDROmorphone 2 MG/ML, 1ML IVPush PRN ×2 (17:58→21:38)
--- NOTE | 2019-11-26 17:58 | NUR ---
PT TO XRAY NOW. MEDICATED PER ORDER.
[2019-11-26] MEDS ORDERED: ONDANSETRON 2MG/ML, 2ML IVPush ONE (18:00)
[2019-11-26] MEDS ORDERED: SODIUM CHLORIDE 0.9% 1,000ML IVBOLUS ONE (18:00)
[2019-11-26] MEDS ORDERED: SODIUM CHLORIDE FLUSH 10ML SYR IVF ONE (18:00)
[2019-11-26 18:03] LABS: ALANINE AMINOTRANSFERASE 37 U/L (12-78); ALBUMIN 3.8 g/dL (3.4-5.0); ANION GAP 5 mmol/L (5-15); CHLORIDE 108 mmol/L (98-107); CREATININE 1.14 mg/dL (0.55-1.02)
[2019-11-26 18:06] LABS: ALKALINE PHOSPHATASE 50 U/L (45-117); BILIRUBIN,TOTAL 0.3 mg/dL (0.2-1.0); TOTAL PROTEIN 7.2 g/dL (6.4-8.2)
[2019-11-26 18:17] LABS: BASOPHILS # (AUTO) 0.07 x10^3/uL (0-0.1); BASOPHILS % (AUTO) 1 % (0-1); EOSINOPHILS # (AUTO) 0.47 x10^3/uL (0-0.4); EOSINOPHILS % (AUTO) 5 % (1-7); LYMPHOCYTES # (AUTO) 2.35 x10^3/uL (1-3.4); LYMPHOCYTES % (AUTO) 24 % (22-44); MD SCAN; MONOCYTES # (AUTO) 0.83 x10^3/uL (0.2-0.8); MONOCYTES % (AUTO) 9 % (2-9); NEUTROPHILS # (AUTO) 5.96 x10^3/uL (1.8-6.8); NEUTROPHILS % (AUTO) 62 % (42-75)
--- NOTE | 2019-11-26 18:27 | NUR ---
PT BACK FROM X RAY. PT STATES POSITIVE RELIEF OF PAIN FROM MEDICATION.
--- NOTE | 2019-11-26 18:51 | NUR ---
bedside report from Vicente ROSS, pt care transferred at this time.
[2019-11-26 19:35] LABS: MICROSCOPIC NOT IND
--- NOTE | 2019-11-26 20:27 | NUR ---
PT RESTING ON GURNEY, WAITING FOR ADMIT BED, DENIES ADDITIONAL NEEDS, UPDATED ON PLAN OF CARE, APPEARS COMFORTABLE, CALL LIGHT ON LAP, WCTM.
[2019-11-26] MEDS ORDERED: HYDROmorphone 2 MG/ML, 1ML ONE (21:36)
--- NOTE | 2019-11-26 21:41 | NUR ---
PT MEDICATED PER MAR FOR PAIN, NAD, RESTING IN GURNEY, DENIES ANY DIZZINESS OR LIGHT HEADEDNESS AT THIS TIME. FCS NO SOB NOTED. WCTM, WAITING FOR ADMIT BED.
[2019-11-26] MEDS ORDERED: ACETAMINOPHEN 325 MG TABLET PO PRN (22:00)
[2019-11-26] MEDS ORDERED: DOCUSATE 100 MG CAPSULE PO PRN (22:00)
[2019-11-26] MEDS ORDERED: ONDANSETRON ODT 4 MG PO PRN (22:00)
[2019-11-26] MEDS ORDERED: HYDR50TA99 PO (22:35)
--- NOTE | 2019-11-26 22:35 | NUR ---
REPORT CALLED TO MEHRDAD ROSS, PT CARE TO BE TRASNFERRED UPON ARRIVAL TO THE FLOOR. PT PLACED ON 2L NC FOR O2 SAT, NOW AT 98%. WCTM. NO OTHER CHANGES IN CONDITION OTHER THAN PAIN DECREASED.
[2019-11-26 23:35] VITALS: BP 113/71
[2019-11-26 23:45] VITALS: BP 119/81
[2019-11-26 23:47] VITALS: BP 106/74
[2019-11-27] MEDS ORDERED: QUETIAPINE 100MG TABLET PO SCH (00:30)
[2019-11-27] MEDS ORDERED: ALPRazolam 1MG TAB PO PRN (00:30)
[2019-11-27] MEDS ORDERED: LIDODERM 5% PATCH TD ONE (00:30)
[2019-11-27] MEDS ORDERED: hydrOXyzine 50MG TABLET PO PRN (00:30)
[2019-11-27 03:48] VITALS: BP 99/65
[2019-11-27 04:56] LABS: BASOPHILS # (AUTO) 0.03 x10^3/uL (0-0.1); BASOPHILS % (AUTO) 0 % (0-1); EOSINOPHILS # (AUTO) 0.56 x10^3/uL (0-0.4); EOSINOPHILS % (AUTO) 7 % (1-7); LYMPHOCYTES # (AUTO) 2.52 x10^3/uL (1-3.4); LYMPHOCYTES % (AUTO) 31 % (22-44); MD NO; MEAN CORPUSCULAR HEMOGLOBIN 30.2 pg (27.0-34.8); MEAN CORPUSCULAR HGB CONC 32.9 g/dL (32.4-35.8); MEAN CORPUSCULAR VOLUME 91.6 fL (80-100); MEAN PLATELET VOLUME 7.3 fL (7.4-10.4); MONOCYTES # (AUTO) 0.72 x10^3/uL (0.2-0.8); MONOCYTES % (AUTO) 9 % (2-9); NEUTROPHILS # (AUTO) 4.24 x10^3/uL (1.8-6.8); NEUTROPHILS % (AUTO) 53 % (42-75); PLATELET COUNT 250 x10^3/uL (130-400); RED BLOOD COUNT 3.34 x10^6/uL (3.82-5.3); RED CELL DISTRIBUTION WIDTH 13.2 % (9.6-15.2)
[2019-11-27 05:05] LABS: ANION GAP 4 mmol/L (5-15); CALCIUM 8.2 mg/dL (8.5-10.1); CHLORIDE 110 mmol/L (98-107)
[2019-11-27 05:06] LABS: CREATININE 1.03 mg/dL (0.55-1.02)
[2019-11-27 08:22] VITALS: BP 112/72
[2019-11-27] MEDS ORDERED: FLUOXETINE HCL 20 MG CAPSULE PO SCH (09:00)
[2019-11-27] MEDS ORDERED: ONDANSETRON 2MG/ML, 2ML IVPush PRN (09:30)
[2019-11-27] MEDS ORDERED: HYDROcodone/APAP 10/325 MG TABLET PO PRN (09:30)
[2019-11-27] MEDS ORDERED: OXYcodone 5 MG/5 ML ORAL.SOL UDC PO PRN (12:30)
[2019-11-27] MEDS ORDERED: LIDODERM REMOVE PATCH NOTE XX SCH (13:00)
== END 2019-11-27 14:05 | disposition home or self-care (01) | DRG 556 ==
LOC: ED 19:17 → EDIP 19:26 → 5SO 23:16 → DCLOUNGE 11-27 13:56
PROVIDERS: ADMIT Family Medicine; ATTEND Internal Medicine
DX: M25.551 Pain in right hip (principal); I31.3 Pericardial effusion (noninflammatory); Z68.41 Body mass index [BMI] 40.0-44.9, adult; E66.01 Morbid (severe) obesity due to excess calories; F17.200 Nicotine dependence, unspecified, uncomplicated; F31.9 Bipolar disorder, unspecified; G89.21 Chronic pain due to trauma; G90.9 Disorder of the autonomic nervous system, unspecified; M51.36 Other intervertebral disc degeneration, lumbar region; I10 Essential (primary) hypertension; Z76.5 Malingerer [conscious simulation]; W18.39XA Other fall on same level, initial encounter; Y93.89 Activity, other specified; Y92.098 Other place in other non-institutional residence as the place of occurrence of the external cause; Y99.8 Other external cause status; F41.9 Anxiety disorder, unspecified
CPT/HCPCS: 36415; 72100; 80048; 80053; 81003; 85025; 93005; 93880; G0378; J1170; J2405; Q0162; J7030

== ENCOUNTER 2019-12-16 15:41 | Emergency (ER) | payer MEDICAID ==
[~2019-12-16] VITALS: Ht 172.7 cm; Wt 121.7 kg
[~2019-12-16 15:41] MED LIST changes: +HYDR50TA99 PO
[2019-12-16 15:42] VITALS: BP 124/73
--- NOTE | 2019-12-16 16:57 | NUR ---
ALL RESULTS BACK, PT FOR RECHECK.
--- NOTE | 2019-12-16 17:18 | NUR ---
CALL FROM MOTHER CONCERNED ABOUT PT'S MENTAL STATE. ERP NOTIFIED OF MOTHER'S CONCERNS. PT TO BE DISCHARGED HOME (MOM TO [facility]) WITH FOLLOW UP WITH PSYCHIATRIST AND PAIN MANAGEMENT. CALL BACK TO MOM, WITH PERMISSION FROM PT, TO INFORM OF ERP RECOMMENDATIONS.
== END 2019-12-16 17:30 | disposition home or self-care (01) ==
LOC: ED 17:00
DX: S93.402A Sprain of unspecified ligament of left ankle, initial encounter (principal); M54.9 Dorsalgia, unspecified; R42 Dizziness and giddiness; I10 Essential (primary) hypertension; W01.0XXA Fall on same level from slipping, tripping and stumbling without subsequent striking against object, initial encounter; Y93.89 Activity, other specified; Y92.098 Other place in other non-institutional residence as the place of occurrence of the external cause; Y99.8 Other external cause status
CPT/HCPCS: 99283

== ENCOUNTER 2019-12-18 16:29 | Emergency (ER) | payer MEDICAID ==
[~2019-12-18] VITALS: Ht 172.7 cm; Wt 121.0 kg
--- NOTE | 2019-12-18 16:41 | NUR ---
THREAD TOOL GRINDER SET UP OPERATOR: PRESENT DURING EKG PROCEDURE
--- NOTE | 2019-12-18 17:46 | NUR ---
JUDGE CLERK: PT TO ROOM FROM LOBBY VIA W/C
--- NOTE | 2019-12-18 18:56 | NUR ---
PT ABLE TO URINATE, WILL SEND SAMPLE TO LAB. PT AWAITING ERMD ASSESSMENT.
[2019-12-18] MEDS ORDERED: HYDROmorphone 2 MG/ML, 1ML IM ONE (19:00)
[2019-12-18] MEDS ORDERED: ONDANSETRON ODT 4 MG PO ONE (19:00)
[2019-12-18] MEDS ORDERED: HYDROmorphone 1 MG/ML, 1ML INJ ONE (19:08)
[2019-12-18] MEDS ORDERED: ONDANSETRON ODT 4 MG ONE (19:08)
--- NOTE | 2019-12-18 19:14 | NUR ---
PT MEDICATED FOR PAIN PER ORDERS, UA SENT TO LAB. ON MONITORS, VSS. CONT TO MONITOR.
[2019-12-18 19:54] LABS: MICROSCOPIC NOT IND
--- NOTE | 2019-12-18 20:44 | NUR ---
PT SLEEPING IN BED, NO DISTRESS. VSS. PT UP FOR ERMD RECHECK. CONT TO MONITOR.
--- NOTE | 2019-12-18 21:07 | NUR ---
ERMD AT BEDSIDE FOR RECHECK. PT SLEEPING BUT EASY TO ROUSE. REMAINS ON MONITORS, VSS. WILL FOLLOW ORDERS.
--- NOTE | 2019-12-18 21:49 | NUR ---
REPORT GIVEN FABIAN ROSS.
[2019-12-18 21:57] VITALS: BP 125/68
--- NOTE | 2019-12-18 21:57 | NUR ---
REPORT FROM VANDANA DEL ANGEL. PT RESTING IN [facility] NOTED. PT DROWSY THOUGH ARROUSABLE AND ANSWERS QUESTIONS APPROPRIATELY. PT REPORTS "PAIN IS WORSE SINCE ARRIVAL", 01/29. ERP AWARE. AWAITING ORDERS.
--- NOTE | 2019-12-18 22:57 | NUR ---
DC EDUCATION PROVIDED BY VANDANA GREGG. PT STANDING STEADILY AT BEDSIDE, DRESSED INDEPENDENTLY. PT AMBULATED STEADILY TO DC WITH RN. MOTHER IN LOBBY TO TRANSPORT PT HOME.
== END 2019-12-18 22:59 | disposition home or self-care (01) ==
LOC: ED 18:05
DX: J15.9 Unspecified bacterial pneumonia (principal); G89.29 Other chronic pain; M54.5 Low back pain; M25.551 Pain in right hip; R30.0 Dysuria; R07.89 Other chest pain; R94.31 Abnormal electrocardiogram [ECG] [EKG]; I10 Essential (primary) hypertension; F17.200 Nicotine dependence, unspecified, uncomplicated
CPT/HCPCS: 71045; 81003; 93005; 96372; 99285; J1170; Q0162

== ENCOUNTER 2019-12-29 13:16 | Emergency (ER) | payer MEDICAID ==
[~2019-12-29] VITALS: Ht 172.7 cm; Wt 127.6 kg
[2019-12-29 13:19] VITALS: BP 150/99
--- NOTE | 2019-12-29 13:49 | NUR ---
PT REPORTS CHEST AND LOWER BACK PAIN SINCE THIS MORNING, DENIES RADIATING PAIN AT THIS TIME, DENIES N/V. PLACED ON CARDIAC AND VITALS MONITORS. FALL PRECAUTIONS IN PLACE.
[2019-12-29 14:12] LABS: BASOPHILS # (AUTO) 0.05 x10^3/uL (0-0.1); BASOPHILS % (AUTO) 1 % (0-1); EOSINOPHILS # (AUTO) 0.29 x10^3/uL (0-0.4); EOSINOPHILS % (AUTO) 4 % (1-7); LYMPHOCYTES # (AUTO) 2.18 x10^3/uL (1-3.4); LYMPHOCYTES % (AUTO) 32 % (22-44); MD NO; MEAN CORPUSCULAR HEMOGLOBIN 30.5 pg (27.0-34.8); MEAN CORPUSCULAR HGB CONC 32.7 g/dL (32.4-35.8); MEAN CORPUSCULAR VOLUME 93.1 fL (80-100); MEAN PLATELET VOLUME 6.9 fL (7.4-10.4); MONOCYTES # (AUTO) 0.54 x10^3/uL (0.2-0.8); MONOCYTES % (AUTO) 8 % (2-9); NEUTROPHILS # (AUTO) 3.79 x10^3/uL (1.8-6.8); NEUTROPHILS % (AUTO) 55 % (42-75); PLATELET COUNT 280 x10^3/uL (130-400); RED BLOOD COUNT 3.78 x10^6/uL (3.82-5.3); RED CELL DISTRIBUTION WIDTH 15.2 % (9.6-15.2)
[2019-12-29 14:24] LABS: ALBUMIN 3.5 g/dL (3.4-5.0); CALCIUM 9.1 mg/dL (8.5-10.1)
[2019-12-29 14:29] LABS: CREATININE 0.99 mg/dL (0.55-1.02); TROPONIN I < 0.015 ng/mL (0.000-0.045)
--- NOTE | 2019-12-29 14:30 | NUR ---
URINE SAMPLE COLLECTED.
[2019-12-29 14:34] LABS: ANION GAP 5 mmol/L (5-15); CHLORIDE 112 mmol/L (98-107)
[2019-12-29 14:45] LABS: MICROSCOPIC NOT IND
== END 2019-12-29 15:49 | disposition home or self-care (01) ==
LOC: ED 14:59
DX: M94.0 Chondrocostal junction syndrome [Tietze] (principal); R00.1 Bradycardia, unspecified; R07.9 Chest pain, unspecified; R51 Headache; I10 Essential (primary) hypertension; G89.29 Other chronic pain
CPT/HCPCS: 36415; 71045; 80048; 81003; 82040; 84484; 85025; 93005; 99285

== ENCOUNTER 2021-01-08 01:35 | Emergency (ER) | payer MEDICAID ==
[~2021-01-08] VITALS: Ht 172.7 cm; Wt 146.5 kg
[2021-01-08 08:28] VITALS: BP 148/83
== END 2021-01-08 10:03 | disposition home or self-care (01) ==
LOC: ED 07:25
DX: U07.1 COVID-19 (principal); J12.82 Pneumonia due to coronavirus disease 2019; R05 Cough; R06.02 Shortness of breath; M54.9 Dorsalgia, unspecified; I10 Essential (primary) hypertension; F17.210 Nicotine dependence, cigarettes, uncomplicated; E66.9 Obesity, unspecified; Z68.42 Body mass index [BMI] 45.0-49.9, adult
CPT/HCPCS: 36415; 71045; 80053; 84484; 84703; 85025; 93005; 94640; 96361; 96374; 99285; 99406; J1885; J7030; M0243; U0003; U0005